=== PATIENT | female | born 1955 | race Caucasian/White ===

== ENCOUNTER 2020-05-18 05:18 | Emergency (ER) | payer OTHER ==
[~2020-05-18 05:18] MED LIST: ZITHROMAX250 MG PO
[2020-05-18 08:12] LABS: HEMOGLOBIN 14.5 gm/dl (12.3-15.3); RED BLOOD COUNT 4.61 M/UL (4.00-5.10); WHITE BLOOD COUNT 8.9 K/UL (4.5-11.0)
[2020-05-18 08:29] LABS: BUN/CREATININE RATIO 38 (0-10)
[2020-05-18] MEDS ORDERED: IBUPROFEN600 MG PO (08:54)
== END 2020-05-18 09:04 | disposition home or self-care (01) ==
LOC: ER1 05:18
PROVIDERS: Emergency Medicine
DX: M25.522 Pain in left elbow (principal); M79.632 Pain in left forearm; I10 Essential (primary) hypertension
CPT/HCPCS: 71045; 73080; 80053; 82550; 82553; 83874; 84484; 85025; 93005; 99283